=== PATIENT | male | born 1975 | race Caucasian/White ===

== ENCOUNTER 2017-01-03 18:38 | Emergency (ER) | payer OTHER ==
[2017-01-03] MEDS ORDERED: HYDROcodone/Acetaminophen 5/325 mg Tablet ONE ×2 (18:48→19:33)
--- NOTE | 2017-01-03 21:25 | RAD ---
RIGHT ANKLE THREE VIEWS 01/03/2017 FINDINGS: An oblique fracture of the distal fibular shaft is present. In addition, there is a fracture throug h the posterior part of the distal tibia with displacement. This latter fracture is longitudinal in nature. There is an intraarticular component to this fracture. IMPRESSION: Acute displaced fractures of the distal tibia and fibula. CODE T POS: HOME
== END 2017-01-03 19:56 | disposition home or self-care (01) ==
LOC: BURERS 18:38
DX: S82.831A Other fracture of upper and lower end of right fibula, initial encounter for closed fracture (principal); K21.9 Gastro-esophageal reflux disease without esophagitis; F17.210 Nicotine dependence, cigarettes, uncomplicated; X58.XXXA Exposure to other specified factors, initial encounter
CPT/HCPCS: 29515

== ENCOUNTER 2019-08-26 15:09 | Emergency (ER) | payer BC, OTHER ==
[2019-08-26] MEDS ORDERED: Adacel (T-DAP) 0.5 ML SYRINGE ONE (15:25)
[2019-08-26] MEDS ORDERED: Cephalexin 250 MG CAP ONE (15:40)
== END 2019-08-26 15:45 | disposition home or self-care (01) ==
LOC: BURERS 15:09
DX: S61.012A Laceration without foreign body of left thumb without damage to nail, initial encounter (principal); W27.0XXA Contact with workbench tool, initial encounter
CPT/HCPCS: 90471; 90715

== ENCOUNTER 2020-11-04 19:16 | Emergency (ER) | payer BC ==
[2020-11-04 19:37] LABS: Bilirubin Negative (Negative); Blood, Urine Negative (Negative); Clarity Clear (Clear); Glucose, Urine (Dipstick) Negative (Negative); Ketone, Urine Trace mg/dL (Negative); Leukocyte Negative (Negative); Nitrite Negative (Negative); Protein, Urine (Dipstick) Negative (Neg-Trace); Urobilinogen 0.2 mg/dL (Less than 2); pH, Urine 6.5 (5.0-9.0)
== END 2020-11-04 19:51 | disposition home or self-care (01) ==
LOC: BURERS 19:16
DX: N32.89 Other specified disorders of bladder (principal); T48.5X5A Adverse effect of other anti-common-cold drugs, initial encounter; K21.9 Gastro-esophageal reflux disease without esophagitis
CPT/HCPCS: 51798; 81003; 99284

== ENCOUNTER 2021-08-01 14:09 | Emergency (ER) | payer BC ==
[2021-08-02 19:40] LABS: SARS-CoV-2 PCR by NAA DETECTED (NotDetected)
== END 2021-08-01 14:30 | disposition home or self-care (01) ==
LOC: BURERS 14:09
DX: U07.1 COVID-19 (principal); E11.9 Type 2 diabetes mellitus without complications; F17.210 Nicotine dependence, cigarettes, uncomplicated
CPT/HCPCS: 99283; U0003; U0005

== ENCOUNTER 2022-03-07 12:57 | Emergency (ER) | payer BC, OTHER | END 2022-03-07 13:24 | disposition home or self-care (01) | LOC: BURERS 12:57 | DX: H60.91 Unspecified otitis externa, right ear (principal); Z87.891 Personal history of nicotine dependence; E11.9 Type 2 diabetes mellitus without complications | CPT/HCPCS: 99282 ==

== ENCOUNTER 2023-07-04 15:45 | Outpatient (CLI) | payer OTHER | END 2023-07-04 15:46 | disposition home or self-care (01) | LOC: BURLAB 15:45 → BURRAD 15:46 | PROVIDERS: ATTEND Family Medicine | DX: M54.50 Low back pain, unspecified (principal); M47.816 Spondylosis without myelopathy or radiculopathy, lumbar region | CPT/HCPCS: 72110 ==

== ENCOUNTER 2024-01-03 09:54 | Emergency (ER) | payer OTHER ==
[2024-01-03] MEDS ORDERED: Ketorolac Tromethamine 30 MG (1 mL) VIAL ONE (10:19)
[2024-01-03] MEDS ORDERED: Dexamethasone 10 MG/ML VIAL ONE (10:19)
[2024-01-03] MEDS ORDERED: diphenhydrAMINE 50 MG/ML VIAL ONE (10:19)
[2024-01-03] MEDS ORDERED: Metoclopramide HCl 10 MG (2 mL) VIAL ONE (10:19)
[2024-01-03 10:32] LABS: #Basophils 0.1 thou/uL (0.0-0.2); #Eosinphils 0.1 thou/uL (0.0-0.7); #Lymphocytes 2.3 thou/uL (1.20-3.40); #Monocytes 0.7 thou/uL (0.11-0.59); #Neutrophils 5.1 thou/uL (1.40-6.50); %Lymphocytes 27.8 % (21.0-51.0); %Monocytes 7.9 % (0.0-10.0); %Neutrophils 62.3 % (42.0-75.0); Hematocrit 48.9 % (42.0-52.0); Hemoglobin 16.8 g/dL (14.0-18.0); Mean Corpuscular HGB CONC 34.4 g/dL (32.0-36.0); Mean Corpuscular Hemoglobin 29.3 pg (27.0-31.0); Mean Corpuscular Volume 85.3 fl (78.0-98.0); Mean Platelet Volume 8.3 fL (7.4-10.4); Platelet Count 192 10x3/uL (130-400); Red Blood Cell (RBC) Count 5.73 mill/uL (4.70-6.10); White Blood Cell (WBC) Count 8.3 10x3/uL (4.8-10.8)
[2024-01-03 10:45] LABS: ALT (SGPT) 56 U/L (8-55); AST (SGOT) 21 U/L (5-34); Albumin 4.2 g/dL (3.5-5.0); Alkaline Phosphatase 94 U/L (40-110); Anion Gap 11 mmol/L (10-20); BUN (Urea Nitrogen) 11 mg/dL (8.9-20.6); Bilirubin, Total 0.5 mg/dL (0.2-1.2); Calc. Creatinine Clearance 0 mL/min (70-130); Calcium 8.8 mg/dL (7.8-10.44); Carbon Dioxide 23 mmol/L (22-29); Chloride 111 mmol/L (98-107); Estimated GFR 95; Globulin 2.5 g/dL (2.4-3.5); Glucose 139 mg/dL (70-105); Protein, Total 6.7 g/dL (6.0-8.3); Sodium 141 mmol/L (136-145)
== END 2024-01-03 11:22 | disposition home or self-care (01) ==
LOC: BURERS 09:54
DX: G43.909 Migraine, unspecified, not intractable, without status migrainosus (principal); E11.9 Type 2 diabetes mellitus without complications; Z87.891 Personal history of nicotine dependence
CPT/HCPCS: 36415; 80053; 85025; 86140; 96374; 96375; J1100; J1200; J1885; J2765

== ENCOUNTER 2024-01-17 10:57 | Emergency (ER) | payer OTHER ==
[2024-01-17 11:23] LABS: #Basophils 0.1 thou/uL (0.0-0.2); #Lymphocytes 2.5 thou/uL (1.20-3.40); #Monocytes 0.6 thou/uL (0.11-0.59); #Neutrophils 8.1 thou/uL (1.40-6.50); %Basophils 0.8 % (0.0-1.0); %Eosinophils 0.4 % (0.0-10.0); %Lymphocytes 22.1 % (21.0-51.0); %Monocytes 4.8 % (0.0-10.0); %Neutrophils 71.9 % (42.0-75.0); Hemoglobin 17.2 g/dL (14.0-18.0); Mean Corpuscular Hemoglobin 29.4 pg (27.0-31.0); Mean Corpuscular Volume 83.8 fl (78.0-98.0); Mean Platelet Volume 8.8 fL (7.4-10.4); Platelet Count 268 10x3/uL (130-400); RBC Distribution Width 10.4 % (11.5-14.5); Red Blood Cell (RBC) Count 5.85 mill/uL (4.70-6.10); White Blood Cell (WBC) Count 11.3 10x3/uL (4.8-10.8)
[2024-01-17 11:42] LABS: ALT (SGPT) 55 U/L (8-55); AST (SGOT) 23 U/L (5-34); Albumin 4.2 g/dL (3.5-5.0); Alkaline Phosphatase 85 U/L (40-110); Anion Gap 12 mmol/L (10-20); BUN (Urea Nitrogen) 12 mg/dL (8.9-20.6); Bilirubin, Total 0.7 mg/dL (0.2-1.2); Calc. Creatinine Clearance 0 mL/min (70-130); Calcium 9.3 mg/dL (7.8-10.44); Carbon Dioxide 21 mmol/L (22-29); Chloride 107 mmol/L (98-107); Estimated GFR 74; Globulin 2.6 g/dL (2.4-3.5); Glucose 197 mg/dL (70-105); Potassium 4.2 mmol/L (3.5-5.1); Protein, Total 6.8 g/dL (6.0-8.3); Sodium 136 mmol/L (136-145)
== END 2024-01-17 12:05 | disposition home or self-care (01) ==
LOC: BURERS 10:57
DX: R11.0 Nausea (principal); K92.1 Melena; E11.9 Type 2 diabetes mellitus without complications; Z87.891 Personal history of nicotine dependence
CPT/HCPCS: 36415; 80053; 85025; 99284